=== PATIENT | female | born 1960 | race Two or more races ===

== ENCOUNTER → 2017-02-15 | Outpatient (CLI) | payer OTHER ==
--- NOTE | ~2017-02-15 | MY29 ---
[facility] A Service of [facility] RADIOLOGY TEXT RESULTS PATIENT: MECHELLE NUNEZ LOCATION: [facility] : 62 UNIT #: [id number] AGE: [address]: Marky Cleary MD SEX: F ORDER DR: [id number] [facility]. [place], [place] [address] [id number] O MR#: [id number] Acc #: [id number] NAME: MECHELLE NUNEZ : 1960 SEX: F STUDY DATE/TIME: 02/15/2017 17:06 UNIT: [facility] ROOM: STUDY DESCRIPTION: [facility] SCREENING W/ CAD BILAT Attending Physician: Marky Cleary M.D. Referring Physician: Marky Cleary M.D. Ordering Physician: Marky Cleary M.D. Primary Care Physician: Marky Cleary M.D. MEDICAL IMAGING REPORT This report is preliminary unless electronic signature is present EXAM Bilateral Digital Screening Mammogram with CAD INDICATION Breast cancer screening. 57-year-old asymptomatic female. No personal or family history of breast cancer. COMPARISON February 05, 2016, December 26, 2014, November 27, 2013, December 05, 2011, July 26, 2010 FINDINGS There are scattered fibroglandular tissues. No suspicious findings are present. IMPRESSION No mammographic evidence of malignancy. Annual screening mammography and clinical breast exam are recommended. A result letter will be sent to the patient. Patients over the age of 40 are entered into a reminder system with target due date for the next mammogram. BIRADS: 1 Negative Dictated by... Thai Dallas M.D. THIS IS AN ELECTRONICALLY VERIFIED REPORT Thai Dallas M.D. at 02/21/2017 2:12 PM [facility] A Service of [facility] & [facility] RADIOLOGY TEXT RESULTS PATIENT: MECHELLE NUNEZ LOCATION: [facility] : 62 UNIT #: [id number] AGE: [address]: Marky Cleary MD SEX: F ORDER DR: VASU/arturo TD: 02/16/2017 08:37 JOB #: [id number] MEDICAL IMAGING REPORT Page 1 of 1 COPY
== END | disposition home or self-care (01) ==
LOC: CWCC 02-13 16:45
DX: Z12.31 Encounter for screening mammogram for malignant neoplasm of breast (principal)
CPT/HCPCS: G0202